=== PATIENT | female | born 1935 | race Caucasian/White ===

== ENCOUNTER 2018-01-01 16:17 | Emergency (ER) | payer MEDICARE, BC ==
[~2018-01-01] VITALS: Ht 154.9 cm; Wt 67.1 kg
[2018-01-01] MEDS ORDERED: ASPI81TA31 PO (16:31)
[2018-01-01] MEDS ORDERED: ACETAMINOPHEN ES 500 MG TABLET ONE (16:51)
--- NOTE | 2018-01-01 16:56 | NUR ---
PT WAS EVALUATED BY DR DEGROOT. PT WAS D/C TO HOME. D/C INSTRUCTIONS GIVEN TO THE PT.
[2018-01-01 16:58] VITALS: BP 143/82
[2018-01-01] MEDS ORDERED: ACETAMINOPHEN ES 500 MG TABLET PO ONE (17:00)
== END 2018-01-01 17:41 | disposition home or self-care (01) ==
LOC: ER 16:20
DX: S81.012A Laceration without foreign body, left knee, initial encounter (principal); I10 Essential (primary) hypertension; E78.00 Pure hypercholesterolemia, unspecified; Z79.82 Long term (current) use of aspirin; W01.0XXA Fall on same level from slipping, tripping and stumbling without subsequent striking against object, initial encounter; Y93.89 Activity, other specified; Y92.89 Other specified places as the place of occurrence of the external cause; Y99.8 Other external cause status
CPT/HCPCS: A4663; A9150

== ENCOUNTER 2020-01-25 14:44 | Emergency (ER) | payer MEDICARE, BC ==
[~2020-01-25] VITALS: Ht 170.2 cm; Wt 66.7 kg
[~2020-01-25 14:44] MED LIST: ASPI81TA31 PO
[2020-01-25] MEDS ORDERED: TDAP DIPH,PERTUSS,TET VAC/PF 0.5 ML DISP.SYRIN IM ONE ×2 (15:00→16:05)
--- NOTE | 2020-01-25 15:00 | NUR ---
Patient BIB [facility] from home for c/o LAC on forehead. Patient states "I got weak and fell and hit my head. " Patient denies LOC, N/V, is A/Ox3.
[2020-01-25] MEDS ORDERED: LET TOPICAL SOLUTION 8 ML UDC TP ONE (16:00)
[2020-01-25] MEDS ORDERED: NEOMY/BACITRA/POLYMYXIN B OINT UD PACKET TP ONE ×2 (16:00→17:45)
[2020-01-25] MEDS ORDERED: SODIUM BICARBONATE 4.2 % (NEUT) 5 ML VIAL TP ONE (16:00)
[2020-01-25] MEDS ORDERED: LIDOCAINE VISCUS 2% 15 ML UDC XX ONE (16:00)
[2020-01-25] MEDS ORDERED: ACETAMINOPHEN ES 500 MG TABLET PO ONE (16:00)
[2020-01-25] MEDS ORDERED: LET TOPICAL SOLUTION 8 ML UDC ONE (16:04)
[2020-01-25] MEDS ORDERED: CLON0.5T4 PO (16:05)
[2020-01-25] MEDS ORDERED: VALS320T2 PO (16:05)
[2020-01-25] MEDS ORDERED: ROSU10TA2 PO (16:05)
[2020-01-25] MEDS ORDERED: HYDR12.517 PO (16:05)
[2020-01-25] MEDS ORDERED: CLON1TAB12 PO (16:05)
[2020-01-25] MEDS ORDERED: LIDOCAINE HCL 2% 20 ML VIAL IJ ONE (16:15)
[2020-01-25] MEDS ORDERED: ACETAMINOPHEN ES 500 MG TABLET ONE (16:15)
[2020-01-25 17:51] LABS: BASOPHILS % (AUTO) 0.4 % (0.0-2.0); EOSINOPHILS # (AUTO) 0.3 K/uL (0.0-0.7); EOSINOPHILS % (AUTO) 2.2 % (0.0-7.0); HEMATOCRIT 38.7 % (31.2-41.9); HEMOGLOBIN 12.9 g/dL (10.9-14.3); LYMPHOCYTES # (AUTO) 0.7 K/uL (20.0-40.0); LYMPHOCYTES % (AUTO) 5.7 % (20.5-51.5); MEAN CORPUSCULAR HEMOGLOBIN 30.1 uug (24.7-32.8); MEAN CORPUSCULAR HGB CONC 33 g/dL (32.3-35.6); MEAN CORPUSCULAR VOLUME 90.4 fL (75.5-95.3); MONOCYTES # (AUTO) 0.7 K/uL (2.0-10.0); MONOCYTES % (AUTO) 6.1 % (0.0-11.0); NEUTROPHILS # (AUTO) 10.4 K/uL (1.8-8.9); NEUTROPHILS % (AUTO) 85.6 % (38.5-71.5); PLATELET COUNT (AUTO) 176 K/uL (179-408); RED BLOOD CELL COUNT(AUTO) 4.28 MIL/uL (3.63-4.92); WHITE BLOOD COUNT (AUTO) 12.1 K/uL (3.8-11.8)
[2020-01-25 17:58] LABS: CREATININE 0.8 mg/dL (0.6-1.3); POTASSIUM 3.3 mmol/L (3.5-5.1)
[2020-01-25] MEDS ORDERED: POTASSIUM BICARBONATE/CIT AC 25 MEQ TABLET.EFF PO ONE (18:30)
[2020-01-25] MEDS ORDERED: POTASSIUM BICARBONATE/CIT AC 25 MEQ TABLET.EFF ONE (18:35)
--- NOTE | 2020-01-25 18:36 | NUR ---
Patient discharged to home in stable condition. Written and verbal after care instructions given. Patient verbalizes understanding of instructions. Stressed follow up or return to ER for worsening s/s. Pt called her daughter who will pick her up from the ER.
[2020-01-25 18:37] VITALS: BP 148/87
== END 2020-01-25 18:41 | disposition home or self-care (01) ==
LOC: ER 14:44
DX: S01.81XA Laceration without foreign body of other part of head, initial encounter (principal); S00.11XA Contusion of right eyelid and periocular area, initial encounter; S80.02XA Contusion of left knee, initial encounter; W01.190A Fall on same level from slipping, tripping and stumbling with subsequent striking against furniture, initial encounter; Y92.019 Unspecified place in single-family (private) house as the place of occurrence of the external cause; M17.11 Unilateral primary osteoarthritis, right knee; M85.2 Hyperostosis of skull; M46.02 Spinal enthesopathy, cervical region; M48.02 Spinal stenosis, cervical region; D69.6 Thrombocytopenia, unspecified; E87.6 Hypokalemia; S80.01XA Contusion of right knee, initial encounter
CPT/HCPCS: 36415; 70450; 70480; 72125; 85025; 90715; A4217; A4663; A9150